=== PATIENT | male | born 1950 | race African-American/Black ===

== ENCOUNTER 2022-03-27 06:00 | Inpatient (IN) ==
[2022-03-21 16:11] LABS: Basophils % 0.6 % (0.0-0.8); Eosinophils # 0.2 10*3/uL (0.0-0.87); Eosinophils % 3.8 % (0.00-10.9); Hematocrit 44.1 VOL% (42.0-52.0); Hemoglobin 14.5 GM/DL (14.0-18.0); Immature Granulocytes % 0.2 %; Immature Granulocytes Absolute 0.01 #; Lymphocytes % 39.1 % (21.2-54.2); Mean Corpuscular HGB Conc 32.9 GM/DL (32-36); Mean Corpuscular Volume 91.9 FL (87-102); Mean Platelet Volume 9.6 FL (9.6-12.0); Monocytes # 0.6 10*3/uL (0.11-0.8); Monocytes % 12.5 % (1.7-12.7); Neutrophils % 43.8 % (38.7-73.9); Platelet Count 208 T/CUMM (130-400); Red Cell Distribution Width 13.5 % (9.3-17.3); White Blood Count 5.1 T/CUMM (4-12)
[2022-03-21 16:30] LABS: Alanine Aminotransferase 42 U/L (16-61); Albumin 3.5 G/DL (3.4-5.0); Alkaline Phosphatase 73 U/L (45-117); Aspartate Amino Transferase 25 U/L (0-37); Bilirubin,Total < 0.39 MG/DL (0.20-1.00); Blood Urea Nitrogen 14 MG/DL (7-18); Calcium 8.9 MG/DL (8.5-10.1); Carbon Dioxide 28 MMOL/L (21-32); Chloride 113 MMOL/L (98-107); Glucose 91 MG/DL (74-106); Potassium 4.4 MMOL/L (3.5-5.1); Sodium 143 MMOL/L (136-145); Total Protein 7.6 G/DL (6.4-8.2)
[2022-03-27] MEDS ORDERED: SODIUM PHOSPHATE ENEMA 133 ML BOTTLE RECTAL ONE (06:16)
[2022-03-27] MEDS ORDERED: SODIUM PHOSPHATE ENEMA 133 ML BOTTLE RECTAL STA (06:22)
[2022-03-27] MEDS: LACTATED RINGERS 1,000 ML IV SCH (06:30)
[2022-03-27] MEDS ORDERED: FAMOTIDINE 20 MG TABLET PO ONE (06:33)
[2022-03-27] MEDS ORDERED: DIAZEPAM 5 MG TABLET PO ONE (06:33)
[2022-03-27] MEDS ORDERED: ACETAMINOPHEN 500 MG TABLET PO ONE (06:33)
[2022-03-27] MEDS ORDERED: GABAPENTIN 400 MG CAPSULE PO ONE (06:33)
[2022-03-27] MEDS ORDERED: MIDAZOLAM 2 MG/2 ML VIAL ONE (06:39)
[2022-03-27] MEDS ORDERED: fentaNYL 100 MCG/2 ML VIAL ONE ×2 (06:39)
[2022-03-27] MEDS ORDERED: ROPIVACAINE 0.5% 30 ML VIAL ONE (06:40)
[2022-03-27] MEDS ORDERED: ALVIMOPAN 12 MG CAPSULE PO ONE (07:00)
[2022-03-27] MEDS ORDERED: cefTRIAXone 1,000 MG in SODIUM CHLORIDE 0.9% 100 ML IV ONE (07:00)
[2022-03-27] MEDS ORDERED: ePHEDrine 50 MG/ML VIAL ONE ×2 (07:43→09:20)
[2022-03-27] MEDS ORDERED: SEVOFLURANE 1 UNIT/15 MINUTE INH ONE ×10 (07:55→11:19)
[2022-03-27] MEDS ORDERED: propofoL 200 MG/20 ML VIAL IV ONE (07:55)
[2022-03-27] MEDS ORDERED: PHENYLEPHRINE 1 MG/10 ML SYRINGE IV ONE ×3 (07:55→09:19)
[2022-03-27] MEDS ORDERED: ONDANSETRON 4 MG/2 ML VIAL ONE (07:55)
[2022-03-27] MEDS ORDERED: LACTATED RINGERS 1,000 ML IV ONE ×2 (07:55→08:55)
[2022-03-27] MEDS ORDERED: LIDOCAINE 2% 5 ML VIAL ONE (07:55)
[2022-03-27] MEDS ORDERED: ROCURONIUM 50 MG/5 ML VIAL IV ONE ×2 (07:55→10:33)
[2022-03-27 08:25] LABS: Amorphous Crystals,Urine Few /HPF (Few); Bilirubin,Urine Negative (Negative); Blood, Urine Moderate mg/dL (Negative); Glucose,Urine (UA) Negative (Negative); Ketones,Urine Negative (Negative); Mucus,Urine Occasional /LPF (Occasional); Nitrite,Urine Negative (Negative); Protein,Urine Negative (Negative); Squamous Epithelial Cell,Urine Occasional /HPF (0-10); Urine Appearance Clear (Clear); Urine Color Yellow (Yellow); Urine Specific Gravity 1.025 (1.001-1.035); Urine Urobilinogen 0.2 eU/dL (<2.0)
[2022-03-27] MEDS ORDERED: ALBUMIN 5% 12.5 GM/250 ML VIAL IV ONE (09:24)
[2022-03-27] MEDS ORDERED: PNEUMOCOCCAL VACCINE (13 VALENT) 0.5 ML SYRINGE IM ONE (09:34)
[2022-03-27] MEDS ORDERED: SUGAMMADEX 200 MG/2 ML VIAL IV ONE (11:16)
[2022-03-27] MEDS ORDERED: oxyCODONE/ACETAMINOPHEN 5-325 MG TABLET PO PRN (11:28)
[2022-03-27] MEDS ORDERED: diphenhydrAMINE 50 MG/1 ML VIAL IV PRN (11:28)
[2022-03-27] MEDS ORDERED: ONDANSETRON 4 MG/2 ML VIAL IV PRN (11:28)
[2022-03-27] MEDS ORDERED: HYDROmorphone 1 MG/1 ML SYRINGE IV PRN (11:28)
[2022-03-27] MEDS ORDERED: PROMETHAZINE 25 MG/1 ML VIAL IM PRN (11:28)
[2022-03-27] MEDS ORDERED: SIMETHICONE CHEW 125 MG TABLET PO PRN (11:28)
[2022-03-27] MEDS ORDERED: BUPIVACAINE MPF 0.25% 30 ML VIAL ONE (11:49)
[2022-03-27 12:55] LABS: Basophils % 0.2 % (0.0-0.8); Eosinophils % 0.2 % (0.00-10.9); Hematocrit 41.9 VOL% (42.0-52.0); Immature Granulocytes % 0.4 %; Immature Granulocytes Absolute 0.04 #; Lymphocytes # 0.7 10*3/uL (1.4-4.0); Lymphocytes % 7.6 % (21.2-54.2); Mean Corpuscular HGB Conc 33.4 GM/DL (32-36); Mean Corpuscular Volume 91.1 FL (87-102); Mean Platelet Volume 8.7 FL (9.6-12.0); Monocytes # 0.6 10*3/uL (0.11-0.8); Monocytes % 6.7 % (1.7-12.7); Neutrophils % 84.9 % (38.7-73.9); Platelet Count 181 T/CUMM (130-400); Red Cell Distribution Width 13.5 % (9.3-17.3); White Blood Count 9.5 T/CUMM (4-12)
[2022-03-27 13:29] LABS: Calcium 8.6 MG/DL (8.5-10.1); Osmolality,Calculated 282.4 MOS/KG (273-304); Potassium 4.1 MMOL/L (3.5-5.1)
[2022-03-27] MEDS: ACETAMINOPHEN 325 MG TABLET PO SCH ×3 (15:44→23:48)
[2022-03-27] MEDS: SODIUM CHLORIDE 0.9% 1,000 ML IV SCH ×2 (16:32→23:49)
[2022-03-27] MEDS: OXYBUTYNIN 5 MG TABLET PO SCH ×2 (16:33→20:53)
[2022-03-27] MEDS: DOCUSATE SODIUM 100 MG CAPSULE PO SCH (20:53)
[2022-03-27] MEDS: ALVIMOPAN 12 MG CAPSULE PO SCH (20:53)
[2022-03-28] MEDS: ACETAMINOPHEN 325 MG TABLET PO SCH ×4 (06:14→23:48)
[2022-03-28] MEDS: cefTRIAXone 1,000 MG in SODIUM CHLORIDE 0.9% 100 ML IV SCH (06:18)
[2022-03-28 06:30] LABS: Basophils % 0.4 % (0.0-0.8); Eosinophils # 0.1 10*3/uL (0.0-0.87); Eosinophils % 1.3 % (0.00-10.9); Hemoglobin 12.7 GM/DL (14.0-18.0); Immature Granulocytes % 0.4 %; Immature Granulocytes Absolute 0.03 #; Lymphocytes # 1.5 10*3/uL (1.4-4.0); Lymphocytes % 20.4 % (21.2-54.2); Mean Corpuscular HGB Conc 32.6 GM/DL (32-36); Mean Corpuscular Volume 92.2 FL (87-102); Mean Platelet Volume 9.1 FL (9.6-12.0); Monocytes # 0.8 10*3/uL (0.11-0.8); Monocytes % 11.6 % (1.7-12.7); Neutrophils % 65.9 % (38.7-73.9); Platelet Count 197 T/CUMM (130-400); Red Blood Count 4.23 MC/CUMM (3.8-5.5); Red Cell Distribution Width 13.8 % (9.3-17.3); White Blood Count 7.2 T/CUMM (4-12)
[2022-03-28 06:48] LABS: Calcium 7.9 MG/DL (8.5-10.1); Osmolality,Calculated 279.3 MOS/KG (273-304); Potassium 3.9 MMOL/L (3.5-5.1)
[2022-03-28] MEDS ORDERED: MAGNESIUM SULF RIDER 2 GM/50 ML PREMIX IV PRN (07:06)
[2022-03-28] MEDS ORDERED: MAGNESIUM SULF RIDER 4 GM/100 ML PREMIX IV PRN (07:06)
[2022-03-28] MEDS: SODIUM CHLORIDE 0.9% 1,000 ML IV SCH (07:15)
[2022-03-28] MEDS: LACTATED RINGERS 1,000 ML IV SCH (07:16)
[2022-03-28] MEDS: DOCUSATE SODIUM 100 MG CAPSULE PO SCH ×2 (08:19→20:59)
[2022-03-28] MEDS: ALVIMOPAN 12 MG CAPSULE PO SCH ×2 (08:20→20:59)
[2022-03-28] MEDS: OXYBUTYNIN 5 MG TABLET PO SCH ×3 (08:20→20:59)
[2022-03-29] MEDS: ACETAMINOPHEN 325 MG TABLET PO SCH (06:00)
[2022-03-29 06:04] LABS: Basophils % 0.6 % (0.0-0.8); Eosinophils # 0.2 10*3/uL (0.0-0.87); Eosinophils % 3.7 % (0.00-10.9); Hemoglobin 12.6 GM/DL (14.0-18.0); Immature Granulocytes % 0.3 %; Immature Granulocytes Absolute 0.02 #; Lymphocytes # 1.6 10*3/uL (1.4-4.0); Lymphocytes % 25.9 % (21.2-54.2); Mean Corpuscular HGB Conc 32.3 GM/DL (32-36); Mean Corpuscular Volume 92.9 FL (87-102); Mean Platelet Volume 9.1 FL (9.6-12.0); Monocytes # 0.7 10*3/uL (0.11-0.8); Monocytes % 10.8 % (1.7-12.7); Neutrophils % 58.7 % (38.7-73.9); Platelet Count 191 T/CUMM (130-400); White Blood Count 6.2 T/CUMM (4-12)
[2022-03-29 06:45] LABS: Calcium 8.5 MG/DL (8.5-10.1); Osmolality,Calculated 278.4 MOS/KG (273-304); Potassium 3.8 MMOL/L (3.5-5.1)
[2022-03-29] MEDS: DOCUSATE SODIUM 100 MG CAPSULE PO SCH (08:12)
[2022-03-29] MEDS: OXYBUTYNIN 5 MG TABLET PO SCH (08:12)
[2022-03-29] MEDS: ALVIMOPAN 12 MG CAPSULE PO SCH (08:12)
[2022-03-29] MEDS: cefTRIAXone 1,000 MG in SODIUM CHLORIDE 0.9% 100 ML IV SCH (08:13)
[2022-03-29 08:45] VITALS: BP 114/56
== END 2022-03-29 10:45 | disposition home or self-care (01) | DRG 707 ==
LOC: N.SDSINP 06:00 → N.5E 15:06
PROVIDERS: ADMIT Surgery; ATTEND Surgery